=== PATIENT | male | born 1955 | race Caucasian/White ===

== ENCOUNTER 2017-09-23 13:54 | Inpatient (IN) | payer SELFPAY ==
[~2017-09-23] VITALS: Ht 185.4 cm; Wt 73.2 kg
[2017-09-23] MEDS ORDERED: SODIUM CHLORIDE 0.9% 1,000 ML IV ONE (14:21)
[2017-09-23] MEDS ORDERED: SODIUM CHLORIDE 0.9% 1,000ML IVBOLUS ONE (14:30)
[2017-09-23] MEDS ORDERED: ALPR-475 PO (14:36)
[2017-09-23 15:01] LABS: BASOPHILS # (AUTO) 0.02 x10^3/uL (0-0.1); BASOPHILS % (AUTO) 0 % (0-1); EOSINOPHILS # (AUTO) 0.04 x10^3/uL (0-0.4); EOSINOPHILS % (AUTO) 0 % (1-7); LYMPHOCYTES # (AUTO) 1.28 x10^3/uL (1-3.4); LYMPHOCYTES % (AUTO) 9 % (22-44); MD NO; MEAN CORPUSCULAR HEMOGLOBIN 31.3 pg (27.5-34.5); MEAN CORPUSCULAR VOLUME 92.1 fL (81-97); MEAN PLATELET VOLUME 7.8 fL (7.4-10.4); MONOCYTES # (AUTO) 1.11 x10^3/uL (0.2-0.8); MONOCYTES % (AUTO) 8 % (2-9); NEUTROPHILS # (AUTO) 11.44 x10^3/uL (1.8-6.8); NEUTROPHILS % (AUTO) 82 % (42-75); PLATELET COUNT 326 x10^3/uL (130-400); RED BLOOD COUNT 5.74 x10^6/uL (4.38-5.82); RED CELL DISTRIBUTION WIDTH 14.2 % (9.4-14.8)
[2017-09-23 15:15] LABS: ALANINE AMINOTRANSFERASE 127 U/L (12-78); ALBUMIN 4.2 g/dL (3.4-5.0); ANION GAP 7 mmol/L (5-15); CALCIUM 9.5 mg/dL (8.5-10.1); CHLORIDE 107 mmol/L (98-107); SALICYLATE LEVEL 6.2 mg/dL (2.8-20.0)
[2017-09-23 15:21] LABS: ALKALINE PHOSPHATASE 25 U/L (45-117); BILIRUBIN,TOTAL 1.3 mg/dL (0.2-1.0); TOTAL PROTEIN 9.1 g/dL (6.4-8.2)
[2017-09-23 15:22] LABS: ACETAMINOPHEN < 2 mcg/mL (10-30)
[2017-09-23] MEDS ORDERED: LORazepam 0.5MG TABLET PO PRN (16:30)
[2017-09-23] MEDS ORDERED: LORazepam 1MG TABLET PO PRN ×4 (16:30)
[2017-09-23] MEDS: SODIUM CHLORIDE 0.9% 1,000 ML IV SCH (16:33)
[2017-09-23 16:58] LABS: HCT (SEDRATE) 52.8 % (39.2-51.8)
[2017-09-23 17:00] LABS: THYROID STIMULATING HORMONE 1.92 mIU/L (0.358-3.740)
[2017-09-23] MEDS ORDERED: DOCUSATE 100 MG CAPSULE PO PRN (17:00)
[2017-09-23] MEDS ORDERED: NICOTINE 14MG/24 HR PATCH.TD24 TD ONE (17:00)
[2017-09-23] MEDS ORDERED: hydrALAzine 20 MG/ML, 1ML IVPush PRN (17:00)
[2017-09-23 17:45] LABS: HEMOGLOBIN A1C 5.5 % (4.2-6.3)
[2017-09-23 18:42] VITALS: BP 124/90
[2017-09-23] MEDS: THIAMINE 100MG TABLET PO SCH (19:13)
[2017-09-23 19:19] VITALS: BP 125/95
[2017-09-23 19:21] VITALS: BP 123/94
[2017-09-23] MEDS: ATORVASTATIN 20 MG TABLET PO SCH (21:12)
[2017-09-23] MEDS: ENOXAPARIN 40 MG/0.4 ML SQ SCH (21:12)
[2017-09-24 00:39] VITALS: BP_SYST 105; BP_SYST 107; BP_SYST 109; BP_DIAS 70; BP_DIAS 72
[2017-09-24] MEDS: SODIUM CHLORIDE 0.9% 1,000 ML IV SCH (03:14)
[2017-09-24 05:18] LABS: BASOPHILS # (AUTO) 0.05 x10^3/uL (0-0.1); BASOPHILS % (AUTO) 0 % (0-1); EOSINOPHILS # (AUTO) 0.16 x10^3/uL (0-0.4); EOSINOPHILS % (AUTO) 1 % (1-7); LYMPHOCYTES # (AUTO) 2.77 x10^3/uL (1-3.4); LYMPHOCYTES % (AUTO) 25 % (22-44); MD NO; MEAN CORPUSCULAR HEMOGLOBIN 31.2 pg (27.5-34.5); MEAN CORPUSCULAR HGB CONC 33.3 g/dL (33.2-36.2); MEAN CORPUSCULAR VOLUME 93.7 fL (81-97); MONOCYTES # (AUTO) 1.05 x10^3/uL (0.2-0.8); MONOCYTES % (AUTO) 9 % (2-9); NEUTROPHILS # (AUTO) 7.11 x10^3/uL (1.8-6.8); NEUTROPHILS % (AUTO) 64 % (42-75); PLATELET COUNT 317 x10^3/uL (130-400); RED BLOOD COUNT 4.97 x10^6/uL (4.38-5.82); RED CELL DISTRIBUTION WIDTH 14.2 % (9.4-14.8)
[2017-09-24 05:19] LABS: ALANINE AMINOTRANSFERASE 102 U/L (12-78); ALBUMIN 3.5 g/dL (3.4-5.0); ANION GAP 6 mmol/L (5-15); CALCIUM 8.7 mg/dL (8.5-10.1); CHLORIDE 110 mmol/L (98-107)
[2017-09-24 05:22] LABS: ALKALINE PHOSPHATASE 23 U/L (45-117); BILIRUBIN,TOTAL 1.3 mg/dL (0.2-1.0); CHOL/HDL RATIO 2.8; CHOLESTEROL, TOTAL 179 mg/dL (140-239); HDL CHOL % 35 % (26-37); HDL CHOLESTEROL (DIRECT) 63 mg/dL (40-60); LDL CHOLESTEROL,CALCULATED 96 mg/dL (54-169); LDL/HDL RATIO 1.5 (0.5-3.0); TOTAL PROTEIN 7.4 g/dL (6.4-8.2); TRIGLYCERIDES 101 mg/dL (50-200); VLDL CHOLESTEROL 20 mg/dL (0-25)
[2017-09-24] MEDS: ASPIRIN 81 MG TABLET EC PO SCH (06:10)
[2017-09-24 06:25] LABS: MICROSCOPIC NOT IND
[2017-09-24 06:27] LABS: CULTURE INDICATED? NO
[2017-09-24 06:44] VITALS: BP_SYST 106; BP_SYST 116; BP_SYST 132; BP_DIAS 68; BP_DIAS 82
[2017-09-24] MEDS ORDERED: MULTIVITAMINS/MINERALS TABLET PO SCH (09:00)
[2017-09-24] MEDS: FOLIC ACID 1 MG TABLET PO SCH (10:59)
[2017-09-24] MEDS: THIAMINE 100MG TABLET PO SCH (10:59)
[2017-09-24] MEDS: NS + 20MEQ KCL 1,000 ML IV SCH ×2 (10:59→20:17)
[2017-09-24] MEDS: MULTIVITAMINS/MINERALS TABLET PO SCH (10:59)
[2017-09-24 12:57] LABS: AMPHETAMINE SCREEN, URINE Negative (Negative); BARBITURATE SCREEN, URINE Negative (Negative); BENZODIAZEPINE SCREEN, URINE Positive (Negative); CANNABINOID SCREEN, URINE Positive (Negative); COCAINE SCREEN, URINE Negative (Negative); METHADONE SCREEN, URINE Negative (Negative); OPIATE SCREEN, URINE Negative (Negative)
[2017-09-24 13:43] LABS: RAPID INFLUENZA A Negative (Negative); RAPID INFLUENZA B Negative (Negative)
[2017-09-24] MEDS ORDERED: HYDROcodone/APAP 5/325 TABLET PO PRN (14:30)
[2017-09-24] MEDS ORDERED: ACETAMINOPHEN 325 MG TABLET PO PRN (14:30)
[2017-09-24 14:50] VITALS: BP_SYST 101; BP_SYST 104; BP_SYST 94; BP_DIAS 65; BP_DIAS 68; BP_DIAS 70
[2017-09-24] MEDS: ATORVASTATIN 20 MG TABLET PO SCH (20:17)
[2017-09-24] MEDS: ENOXAPARIN 40 MG/0.4 ML SQ SCH (20:28)
[2017-09-24 20:42] VITALS: BP 131/71
[2017-09-24 20:43] VITALS: BP 120/76
[2017-09-24 20:44] VITALS: BP 120/70
[2017-09-25 03:15] VITALS: BP 119/73
[2017-09-25 03:16] VITALS: BP 121/71
[2017-09-25 03:17] VITALS: BP 137/81
[2017-09-25 05:11] LABS: ANION GAP 5 mmol/L (5-15); CHLORIDE 111 mmol/L (98-107)
[2017-09-25 05:29] LABS: CREATINE KINASE, TOTAL 1265 U/L (39-308); CREATININE 0.79 mg/dL (0.7-1.3)
[2017-09-25] MEDS: ASPIRIN 81 MG TABLET EC PO SCH (05:57)
[2017-09-25 06:48] VITALS: BP 100/63
[2017-09-25] MEDS: MULTIVITAMINS/MINERALS TABLET PO SCH (09:09)
[2017-09-25] MEDS: FOLIC ACID 1 MG TABLET PO SCH (09:09)
[2017-09-25] MEDS: THIAMINE 100MG TABLET PO SCH (09:09)
[2017-09-25] MEDS ORDERED: FOLI-17 PO (11:52)
[2017-09-25] MEDS ORDERED: MULT-484 PO (11:52)
[2017-09-25] MEDS ORDERED: ATOR20TA9 PO (11:52)
[2017-09-25] MEDS ORDERED: THIA100T6 PO (11:52)
[2017-09-25] MEDS ORDERED: ASPI-621 PO (11:52)
[2017-09-25 13:09] VITALS: BP 126/74
== END 2017-09-25 13:50 | disposition home or self-care (01) | DRG 312 ==
LOC: ED 15:30 → EDIP 16:33 → 4WST 17:12
PROVIDERS: ADMIT Family Medicine; ATTEND Family Medicine
DX: R55 Syncope and collapse (principal); G93.41 Metabolic encephalopathy; D75.1 Secondary polycythemia; R47.01 Aphasia; E86.0 Dehydration; F10.239 Alcohol dependence with withdrawal, unspecified; B19.20 Unspecified viral hepatitis C without hepatic coma; R73.9 Hyperglycemia, unspecified; R74.0 Nonspecific elevation of levels of transaminase and lactic acid dehydrogenase [LDH]; G89.29 Other chronic pain; F17.200 Nicotine dependence, unspecified, uncomplicated; D72.829 Elevated white blood cell count, unspecified; F41.0 Panic disorder [episodic paroxysmal anxiety]; Z66 Do not resuscitate; Z71.6 Tobacco abuse counseling
CPT/HCPCS: 36415; 70450; 70551; 71045; 80048; 80053; 80061; 80074; 80307; 80329; 81003; 82140; 82550; 82607; 83036; 83735; 84443; 85025; 85651; 87400; 87521; 93005; 93306; 93880; 99285; J1650; J3480; 92523-GN; G0480; J7030